=== PATIENT | female | born 1950 | race Caucasian/White ===

== ENCOUNTER 2018-09-06 08:26 | Day surgery (SDC) | payer MEDICARE, OTHER ==
[~2018-09-06 08:26] MED LIST: KETOROLAC TROMETHAMINE 0.45% 4 DROP/0.4 ML DROPERETTE OD PRN
[2018-09-06] MEDS ORDERED: FENTANYL CITRATE INJ/PF 100 MCG/2 ML AMPUL ONE (08:45)
[2018-09-06] MEDS ORDERED: MIDAZOLAM 2 MG/2 ML INJ ONE (08:45)
[2018-09-06] MEDS: TROPICAMIDE 1% OPH SOLN 3 ML OD PRN ×3 (09:18→09:44)
[2018-09-06] MEDS: TETRACAINE HCL 0.5% OPH SOLN 4 ML OD PRN ×3 (09:18→09:49)
[2018-09-06] MEDS: CYCLOPENTOLATE 0.2%/PHENYLEPHRINE 1% OPH SOLN 2 ML OD PRN ×3 (09:19→09:44)
[2018-09-06] MEDS: BESIFLOXACIN HCL 0.6% OPH SUSP 5 ML BOTTLE OD PRN ×4 (09:19→10:21)
[2018-09-06] MEDS: LIDOCAINE 1% INJ-PF (10 MG/ML) 30 ML SDV ONE ×2 (10:07)
[2018-09-06] MEDS: EPINEPHRINE INJ/PF 1 MG/1 ML AMPULE ONE ×2 (10:07)
[2018-09-06] MEDS: CHONDR SU A NA/HYALUR INTRAOC KIT (SURGICARE) ONE ×2 (10:07)
--- NOTE | 2018-09-06 15:11 | [facility] OPERATIVE REPORT E ---
[facility] Operative Report NAME: JAYDA MONTIEL AGE: 67Y DATE OF SURGERY: 09/06/2018 ROOM: PREOPERATIVE DIAGNOSIS: CATARACT, RIGHT EYE. POSTOPERATIVE DIAGNOSIS: CATARACT, RIGHT EYE. OPERATION: Cataract extraction with Toric IOL of the right eye. SURGEON: GAEL VELAZQUEZ M.D. ANESTHESIA: Topical. PROCEDURE: After obtaining appropriate consent, the patient's right eye was prepped and draped in sterile fashion as well as the surgeon in a sterile manner and cataract surgery was started. First a paracentesis blade was used to make a side-port incision. Viscoelastic was used to inflate the anterior chamber. Next a 2.4 mm incision was made with a 2.4 mm blade, clear corneal temporally. A continuous capsulorrhexis was made using a cystotome and Utrata forceps. Following this hydrodissection was carried out to make the lens fully loose and mobile and it was rotated 90 degrees. Following this, a hqcnzd-qdp-odnngly technique was used to phacoemulsify the lens with a CDE of 3.96. The remaining cortex was removed with irrigation/aspiration. Provisc was instilled into the capsular bag to inflate the bag. A SN6AT3, 15.5 lens was placed, rotated to 18 degrees. The remaining viscoelastic material was removed with irrigation/aspiration. Following this, the incision was found to be watertight. Besivance was instilled into the eye and a protective shield was placed over the eye. The patient returned to the postoperative recovery in stable condition. DICTATING PHYSICIAN: GAEL VELAZQUEZ M.D. [id number] PHY#: [id number] ID: [id number] JOB#: [id number] ACCT: [id number] cc:GAEL VELAZQUEZ M.D. >
--- NOTE | 2018-09-06 15:15 | [facility] DISCHARGE SUMMARY E ---
[facility] Discharge Summary NAME: JAYDA MONTIEL AGE: 67Y ADMITTED: 09/06/2018 DISCHARGED: 09/06/2018 HOSPITAL COURSE: This is a 30-rdsr-xdn-old female who underwent cataract extraction with Toric IOL of the right eye. DIAGNOSIS: Cataract, right eye. The patient underwent surgery because she was having difficulty reading, driving, and watching TV. DISCHARGE INSTRUCTIONS: The patient is to be on a regular diet. No bending at the waist, no heavy lifting. She is to use her Besivance, Ilevro, and Durezol at 3:00 p.m. and 8:00 p.m., and sleep with a rigid shield. I will see her for a 1 day postoperative tomorrow. DICTATING PHYSICIAN: GAEL VELAZQUEZ M.D. [id number] PHY#: [id number] ID: [id number] JOB#: [id number] ACCT: [id number] cc:GAEL VELAZQUEZ M.D. >
== END 2018-09-06 11:02 | disposition home or self-care (01) ==
LOC: SC 08:26
PROVIDERS: ATTEND Internal Medicine
DX: H25.13 Age-related nuclear cataract, bilateral (principal); H43.813 Vitreous degeneration, bilateral; H53.002 Unspecified amblyopia, left eye; H04.123 Dry eye syndrome of bilateral lacrimal glands; E78.00 Pure hypercholesterolemia, unspecified; M19.90 Unspecified osteoarthritis, unspecified site; Z87.891 Personal history of nicotine dependence; Z79.899 Other long term (current) drug therapy
CPT/HCPCS: 66984; V2787; J2250; J3490 ×3; A9270; J0171; J3010; 142

== ENCOUNTER 2018-09-25 08:02 | Day surgery (SDC) | payer MEDICARE, OTHER ==
[~2018-09-25 08:02] MED LIST changes: +CHONDR SU A NA/HYALUR INTRAOC KIT (SURGICARE) ONE; +EPINEPHRINE INJ/PF 1 MG/1 ML AMPULE ONE; -KETOROLAC TROMETHAMINE 0.45% 4 DROP/0.4 ML DROPERETTE OD PRN; +KETOROLAC TROMETHAMINE 0.45% 4 DROP/0.4 ML DROPERETTE OS PRN; +LIDOCAINE 1% INJ-PF (10 MG/ML) 30 ML SDV ONE
[2018-09-25] MEDS ORDERED: MIDAZOLAM 2 MG/2 ML INJ ONE (08:17)
[2018-09-25] MEDS: TETRACAINE HCL 0.5% OPH SOLN 4 ML OS PRN ×3 (08:40→09:16)
[2018-09-25] MEDS: CYCLOPENTOLATE 0.2%/PHENYLEPHRINE 1% OPH SOLN 2 ML OS PRN ×3 (08:41→09:05)
[2018-09-25] MEDS: TROPICAMIDE 1% OPH SOLN 3 ML OS PRN ×3 (08:41→09:05)
[2018-09-25] MEDS: BESIFLOXACIN HCL 0.6% OPH SUSP 5 ML BOTTLE OS PRN ×4 (08:42→09:55)
--- NOTE | 2018-09-25 14:36 | [facility] DISCHARGE SUMMARY E ---
[facility] Discharge Summary NAME: JAYDA MONTIEL AGE: 67Y ADMITTED: 09/25/2018 DISCHARGED: 09/25/2018 FINAL DIAGNOSIS: CATARACT, LEFT EYE. HISTORY/CLINIC COURSE: This is a 67-year-old female who underwent cataract extraction of the left eye with insertion of TORIC IOL. Patient underwent surgery because they felt off balance since having surgery in the right eye. Patient is to be on a regular diet. No bending at the waist, no heavy lifting. Patient should use the Durezol, Ilevro, Besivance at 3 p.m. and 8 p.m., and sleep with a rigid shield. I will see her for 1 day postoperative tomorrow. DICTATING PHYSICIAN: GAEL VELAZQUEZ M.D. [id number] PHY#: [id number] ID: [id number] JOB#: [id number] ACCT: [id number] cc:GAEL VELAZQUEZ M.D. >
--- NOTE | 2018-09-25 14:37 | [facility] OPERATIVE REPORT E ---
[facility] Operative Report NAME: JAYDA MONTIEL AGE: 67Y DATE OF SURGERY: 09/25/2018 ROOM: PREOPERATIVE DIAGNOSIS: CATARACT, LEFT EYE. POSTOPERATIVE DIAGNOSIS: CATARACT, LEFT EYE. OPERATION: Cataract extraction with TORIC IOL of the left eye. SURGEON: GAEL VELAZQUEZ M.D. ANESTHESIA: Topical. PROCEDURE: After obtaining appropriate consent, the patient's left eye was prepped and draped in sterile fashion as well as the surgeon in a sterile manner and cataract surgery was started. First a paracentesis blade was used to make a side-port incision. Viscoelastic was used to inflate the anterior chamber. Next a 2.4 mm incision was made with a 2.4 mm blade, clear corneal temporally. A continuous capsulorrhexis was made using a cystotome and Utrata forceps. Following this hydrodissection was carried out to make the lens fully loose and mobile and it was rotated 90 degrees. Following this, a kdfrrn-kij-owauqtq technique was used to phacoemulsify the lens with a CDE of 5.96. The remaining cortex was removed with irrigation/aspiration. Provisc was instilled into the capsular bag to inflate the bag. A SN6AT7, 14.5 diopter lens was placed, rotated to 147 degrees. The remaining viscoelastic material was removed with irrigation/aspiration. Following this, the incision was found to be watertight. Besivance was instilled into the eye and a protective shield was placed over the eye. The patient returned to the postoperative recovery in stable condition. DICTATING PHYSICIAN: GAEL VELAZQUEZ M.D. [id number] PHY#: [id number] ID: [id number] JOB#: [id number] ACCT: [id number] cc:GAEL VELAZQUEZ M.D. >
== END 2018-09-25 10:41 | disposition home or self-care (01) ==
LOC: SC 08:02
PROVIDERS: ATTEND Internal Medicine
DX: H25.13 Age-related nuclear cataract, bilateral (principal); H43.813 Vitreous degeneration, bilateral; H53.002 Unspecified amblyopia, left eye; H04.123 Dry eye syndrome of bilateral lacrimal glands; E78.00 Pure hypercholesterolemia, unspecified; M19.90 Unspecified osteoarthritis, unspecified site; E07.9 Disorder of thyroid, unspecified; I49.9 Cardiac arrhythmia, unspecified; J44.9 Chronic obstructive pulmonary disease, unspecified; Z87.891 Personal history of nicotine dependence; Z86.11 Personal history of tuberculosis; Z79.899 Other long term (current) drug therapy
CPT/HCPCS: 66984; V2787; J2250; J3490 ×3; A9270; J0171; 142